=== PATIENT | female | born 1990 | race African-American/Black ===

== ENCOUNTER 2019-11-22 16:47 | Emergency (ER) | payer OTHER ==
--- NOTE | 2019-11-22 19:50 | RADIOLOGY REPORT (SQ) ---
EXAM DESCRIPTION: CHEST SINGLE VIEW IMAGES COMPLETED DATE/TIME: 11/22/2019 7:41 pm REASON FOR STUDY: SOB COMPARISON: None. EXAM PARAMETERS: NUMBER OF VIEWS: One view. TECHNIQUE: Single frontal radiographic view of the chest acquired. RADIATION DOSE: NA LIMITATIONS: None. FINDINGS: LUNGS AND PLEURA: No opacities, masses or pneumothorax. No pleural effusion. MEDIASTINUM AND HILAR STRUCTURES: No masses. Contour normal. HEART AND VASCULAR STRUCTURES: Heart normal in size. Normal vasculature. BONES: No acute findings. HARDWARE: None in the chest. OTHER: No other significant finding. IMPRESSION: NO ACUTE RADIOGRAPHIC FINDING IN THE CHEST. TECHNICAL DOCUMENTATION: JOB ID: [id number] 2010 [employer]- All Rights Reserved Reading location - IP/workstation name: [email or web address]
--- NOTE | 2019-11-22 20:04 | EKG REPORT ---
SEVERITY:- NORMAL ECG - SINUS RHYTHM : Confirmed by: Janet Mathews MD 22-Nov-2019 20:04:33
--- NOTE | 2019-11-22 20:12 | ER Document Report ---
ED General - General Chief Complaint: Shortness Of Breath Stated Complaint: SHORT OF BREATH Primary Care Provider: SNEHA ARDON NP [Primary Care Provider] - Follow up as needed - HPI Notes: 29-year-old female no significant past medical history presents with approximately 5 days of pain and tenderness at inferior aspect of sternum without radiation. Patient also complains of several weeks of gradual onset shortness of breath that is intermittent and worse when patient lies flat that is associated with a feeling that her throat has been swollen on the outside. Patient is still able to do all of her normal activities, has not been woken up from sleep by shortness of breath. Patient takes OCPs. Patient denies any exe rtional chest pain, cardiac history, premature CAD history and family, premature sudden history in family, lower extremity edema, pleuritic chest pain, DVT/PE/hyper coag history in self or family, cancer history, recent travel/surgery/immobilization, smoking, other drug use, trauma, dizziness, syncope, cough, fever, unexplained weight loss or gain, cold or heat intolerance, skin changes - Related Data Allergies/Adverse Reactions: ciprofloxacin [From Cipro] Allergy (Verified 11/22/19 19:10) Home Medications: CONTROL., VITAMINS Past Medical History - General Information source: Patient - Social History Smoking Status: Never Smoker Frequency of alcohol use: None Drug Abuse: None Family History: Reviewed & Not Pertinent Patient has homicidal ideation: No Review of Systems - Review of Systems Notes: REVIEW OF SYSTEMS: CONSTITUTIONAL : Denies fever, chills, or sweats. EENT: Denies recent cold/sinus symptoms, denies throat pain CARDIOVASCULAR: + chest pain, -[place] RESPIRATORY: Denies cough, + shortness of breath. GASTROINTESTINAL: Denies abdominal pain, nausea/vomiting. GENITOURINARY: Denies difficulty urinating, painful urination. FEMALE GENITOURINARY: Denies abnormal vaginal bleeding, vaginal discharge. MUSCULOSKELETAL: Denies neck pain, back pain. SKIN: Denies rash or skin lesions. HEMATOLOGIC : Denies easy bruising or bleeding. LYMPHATIC: Denies swollen, enlarged glands. NEUROLOGICAL: Denies headache, denies change in gait. PSYCHIATRIC: Denies anxiety or stress or depression. Physical Exam - Vital signs Vitals: Temp 98.2 F 11/22/19 16:48 - Notes Notes: PHYSICAL EXAMINATION: GENERAL: Well-appearing, well-nourished and in no acute distress. HEAD: Atraumatic, normocephalic. EYES: Pupils equal round and appropriate constriction, sclera anicteric, conjunctiva are normal. ENT: nares patent, moist mucous membranes NECK: Normal range of motion, supple without lymphadenopathy, thyroid very mildly enlarged, normal inspection LUNGS: Breath sounds clear to auscultation bilaterally and equal. No wheezes rales or rhonchi. Normal respiratory rate and effort, speaking in full sentences, no signs of respiratory discomfort or distress HEART: Regular rate and rhythm without murmurs ABDOMEN: Soft, nontender, no guarding, no masses, no CVAT EXTREMITIES: Normal range of motion, no pitting or edema. No cyanosis. No calf tenderness NEUROLOGICAL: Awake, alert, conversing appropriately, moves all extremities spontaneously. PSYCH: Normal mood, normal affect. SKIN: Warm, Dry, normal turgor, no rashes or lesions noted. Course - Re-evaluation Re-evalutation: 11/22/19 22:35 Chest pain elicited by palpation of inferior aspect of sternum and medial lower anterior ribs without any visible deformity and no overlying skin abnormalities. Will rule out PE with d-dimer as patient has low pretest probability, but unable to rule out with PERC because patient takes OCPs. Patient's thyroid is mildly enlarged, but patient's respiratory exam is completely normal, patient symptoms have been very mild, and slowly developing. Patient also has possibility of lymphoma causing neck swelling, which I discussed with patient and offered to obtain CT of neck the patient would prefer to see how her lab wor k looks before obtaining CT. Patient has no CAD risk factors and story gives very low suspicion for this etiology. Patient very well-appearing, and no signs of respiratory distress. Chest x-ray and EKG without any emergent findings. Labs delayed by initial lab draw being hemolyzed, patient waiting on lab to redraw. Patient remains stable, will continue to monitor pending rest of work- up. 11/23/19 01:54 Patient continues to have normal exam in the ED with normal respiratory effort and clear lungs. Mild hyponatremia and mild CK elevation on work-up but nothing requiring emergent intervention or hospitalization. I informed patient of abnormal findings and Robert results for her to take to follow-up with primary doctor. I gave patient education about the D-dimer test that was performed and that although she is increased risk of having a PE because of her OCP use she is not high enough suspicion not to be able to be ruled out with d-dimer, however informed patient that this test is not 100% and that she should closely monitor her symptoms if at any time she should have any more chest pain or shortness of breath should be worse or any other alarming symptoms that she should be ree valuated in the emergency room immediately. I recommended that she talk to her primary doctor about a possible thyroid ultrasound to rule out any nodules with more sensitivity. Patient demonstrated understanding of all of these findings and says that she will talk to her primary doctor. No need to repeat color test as was negative today in urgent care and low suspicion. - Vital Signs Vital signs: Temp Pulse Resp BP Pulse Ox 98.3 F 70 17 121/72 99 11/22/19 19:05 11/22/19 23:54 11/22/19 23:54 11/22/19 23:54 11/22/19 23:54 - Laboratory Result Diagrams: 11/22/19 23:00 11/22/19 23:00 Laboratory results interpreted by me: 11/22/19 11/22/19 23:00 23:00 Lymph % (Auto) 47.5 H Sodium 135.3 L Creatine Kinase 298 H - EKG Interpretation by Me Additional EKG results interpreted by me: 11/22/19 20:12 Heart rate 74, no significant ST elevations or depressions, no significant T wave abnormalities, QTc 400 Discharge - Discharge Clinical Impression: Shortness of breath, Hyponatremia Disposition: HOME, SELF-CARE Additional Instructions: Chest Pain of Unclear Cause The exact cause of your chest pain isn't clear. Fortunately, there is no evidence of a dangerous medical condition. Further testing may be required to find the source of the pain. Most often, we find that this pain is coming from the chest wall -- the muscles or rib joints in the chest. But chest pain can come from the lung and lung lining, the esophagus, the heart valves or heart lining, and even the stom ach or gallbladder. Rest. Eat lightly until the pain is gone. We may prescribe medicine for pain and inflammation. You should call the physician immediately if the pain radiates to the shoulder, jaw or arms; if you start to run a fever or develop a cough; or if you develop shortness of breath, or other new or alarming symptoms. Dyspnea, Nonspecific You were evaluated for shortness of breath, or dyspnea. Dyspnea has many causes, and some are more serious than others. Sometimes it's impossible to diagnose the cause of dyspnea with the tests that are available on an emergency basis. Based on our evaluation today, you do not need hospitalization now. We found no evidence of pneumonia, collapsed lung, blood clots in the lung, tumors, or heart failure. Causes of non-specific dyspnea can include asthma or bronchospasm, hyperventilation, emotional distress, heart disease, emphysema, fibrosis of the lung, and stiffness of the chest wall. In healthy individuals with a single episode, it's sometimes reasonable to do nothing but wait to see if the problem occurs again. Additional tests used to evaluate dyspnea can include cardiac stress testing, echocardiography, pulmonary function testing, CAT scan of the chest, bronchoscopy or pulmonary biopsy. Return if shortness of breath persists or worsens, or if you develop chest pain, fever, cough, confusion, or fainting. Follow-up closely with your primary doctor. Bring all of your test results with you when you go to follow-up. If at any point you should feel worse including worsening chest pain, worsening trouble breathing, dizziness, fainting, confusion, fever, or any other worsening or alarming symptoms return to the emergency department immediately. Referrals: SNEHA ARDON NP [Primary Care Provider] - Follow up as needed
[2019-11-22 23:13] LABS: ABSOLUTE EOSINOPHILS # (AUTO) 0.1 10^3/uL (0.0-0.6); ABSOLUTE LYMPHOCYTES (AUTO) 2.5 10^3/uL (0.5-4.7); ABSOLUTE MONOCYTES (AUTO) 0.3 10^3/uL (0.1-1.4); ABSOLUTE NEUT (AUTO) 2.4 10^3/uL (1.7-8.2); BASOPHILS % (AUTO) 0.6 % (0-2); EOSINOPHILS % (AUTO) 1.1 % (0-6); HEMATOCRIT 36.2 % (36.0-47.0); LYMPHOCYTES % (AUTO) 47.5 % (13-45); MEAN CORPUSCULAR HEMOGLOBIN 27.8 pg (27.0-33.4); MEAN CORPUSCULAR VOLUME 84 fl (80-97); MONOCYTES % (AUTO) 5.2 % (3-13); PLATELET COUNT 402 10^3/uL (150-450); RED CELL DISTRIBUTION WIDTH 13.9 % (11.5-14.0); SEGMENTED NEUTROPHILS % (AUTO) 45.6 % (42-78); TOTAL CELLS COUNTED % (AUTO) 100 %; WHITE BLOOD COUNT 5.3 10^3/uL (4.0-10.5)
[2019-11-22 23:31] LABS: ALBUMIN 4.7 g/dL (3.5-5.0); ALKALINE PHOSPHATASE 61 U/L (38-126); ANION GAP 7 (5-19); ASPARTATE AMINO TRANSFERASE 31 U/L (14-36); BILIRUBIN,TOTAL 0.9 mg/dL (0.2-1.3); BLOOD UREA NITROGEN 7 mg/dL (7-20); CALCIUM 9.3 mg/dL (8.4-10.2); CARBON DIOXIDE 22 mmol/L (22-30); CHLORIDE 106 mmol/L (98-107); CREATINE KINASE 298 U/L (30-135); GLUCOSE 80 mg/dL (75-110); POTASSIUM 4.3 mmol/L (3.6-5.0); TOTAL PROTEIN 8.1 g/dL (6.3-8.2)
[2019-11-22 23:42] LABS: TROPONIN I 0.013 ng/mL
[2019-11-22 23:43] LABS: CREATINE KINASE MB < 0.22 ng/mL (<4.55)
[2019-11-22 23:55] VITALS: BP 121/72
--- NOTE | 2019-11-23 01:35 | RADIOLOGY REPORT (SQ) ---
EXAM DESCRIPTION: [facility]: CT NECK CHEST WITHOUT IV CONTRAST CLINICAL HISTORY: 29 years Female; neck swelling orthopnea; TECHNIQUE: Noncontrast CT soft tissue neck protocol All CT scans at this facility use dose modulation, iterative reconstruction, and/or weight based dosing when appropriate to reduce radiation dose to as low as reasonably achievable. COMPARISON: None. FINDINGS: No soft tissue edema. Airway is patent. Epiglottis is normal. No retropharyngeal edema. No cervical adenopathy. Salivary glands are unremarkable. Thyroid is within normal limits. Paranasal sinuses and mastoid air cells are clear. Bony structures are unremarkable. Lung apices are clear. IMPRESSION: 1. Normal noncontrast CT soft tissue neck
== END 2019-11-23 02:26 | disposition home or self-care (01) ==
LOC: ER 16:47
DX: R06.02 Shortness of breath (principal); E87.1 Hypo-osmolality and hyponatremia; R07.9 Chest pain, unspecified; E04.9 Nontoxic goiter, unspecified; Z79.899 Other long term (current) drug therapy; Z79.3 Long term (current) use of hormonal contraceptives; Z88.1 Allergy status to other antibiotic agents
CPT/HCPCS: 36415; 70490; 71045; 80053; 82550; 82553; 84443; 84484; 85025; 85379; 93005; 93010; 99285